=== PATIENT | female | born 1990 | race Caucasian/White ===

== ENCOUNTER 2022-01-03 17:49 | Emergency (ER) | payer SELFPAY ==
[~2022-01-03 17:49] MED LIST: PERCOCET 10-321 EACH PO; SILVADENE CREAM20 GM TOP
[2022-01-03 20:34] LABS: HEMOGLOBIN 14.5 gm/dl (12.3-15.3); RED BLOOD COUNT 5.33 M/UL (4.00-5.10); WHITE BLOOD COUNT 8.4 K/UL (4.5-11.0)
[2022-01-03 21:05] LABS: BUN/CREATININE RATIO 10 (0-10)
== END 2022-01-04 00:20 | disposition home or self-care (01) ==
LOC: ER1 17:49
PROVIDERS: Family Medicine
DX: R07.89 Other chest pain (principal); R03.0 Elevated blood-pressure reading, without diagnosis of hypertension; R06.02 Shortness of breath
CPT/HCPCS: 71045; 80048; 82550; 82553; 84484; 85025; 93005; 99285